=== PATIENT | female | born 1945 | race Caucasian/White ===

== ENCOUNTER → 2023-02-12 15:33 | Outpatient (CLI) | payer MEDICARE, BC, SELFPAY ==
--- NOTE | ~2023-02-12 | US_ITS ---
Thyroid ultrasound. Clinical History: Thyroid nodule Findings: Real-time sonography of the thyroid gland was performed. The right lobe measures 3.1 x 1.8 x 1.5 cm. The left lobe measures 2.7 x 1.1 x 1.4 cm. The isthmus is 5 mm in AP diameter. At the posterior aspect of the right mid pole, there is a 1.0 x 0.8 x 0.9 cm solid, circumscribed nod ule, minimally hypoechoic. Impression: 1.0 cm TR 4 nodule in the right thyroid lobe. Given size of the nodule, one-year follow-up ultrasound recommended to reassess. Reviewed, dictated and finalized at location . Impression: 1.0 cm TR 4 nodule in the right thyroid lobe. Given size of the nodule, one-yea r follow-up ultrasound recommended to reassess.
== END ==
DX: E05.90 Thyrotoxicosis, unspecified without thyrotoxic crisis or storm (principal); M81.0 Age-related osteoporosis without current pathological fracture; E04.1 Nontoxic single thyroid nodule
CPT/HCPCS: 76536

== ENCOUNTER 2023-06-05 17:40 | Emergency (ER) | payer MEDICARE, BC, SELFPAY ==
[2023-06-05 17:51] VITALS: BP 153/69; PULSE 70; RESP 16; TEMP 36.7; O2SAT 100
--- NOTE | 2023-06-05 18:21 | ED.FEMALEGU ---
HPI - Female Genitourinary General Chief complaint: Urogenital-Female Stated complaint: Urinary Problems Time Seen by Provider: 06/05/23 18:21 Source: patient, RN notes reviewed and old records reviewed Mode of arrival: ambulatory Limitations: no limitations History of Present Illness HPI Narrative: 78-year-old female presents to the [facility] with urinary discomfort that started yesterday, frequency started last night. Continue to get worse throughout the day. Has a history of UTIs Related Data Home Medications Medication Instructions Recorded Confirmed losartan 100 mg tablet 100 mg PO DAILY 01/10/20 06/05/23 multivitamin (Daily Multi-Vitamin 1 tablet PO DAILY 01/31/21 06/05/23 tablet) alpha lipoic acid 50 mg capsule 50 mg PO DAILY 02/11/22 06/05/23 methimazole 5 mg tablet 5 mg PO DAILY 02/11/22 06/05/23 Allergies Allergy/AdvReac Type Severity Reaction Status Date / Time codeine AdvReac Intermediate Nausea and Verified 06/05/23 17:49 Vomiting gabapentin AdvReac Intermediate Headache Verified 06/05/23 17:49 Opioids - Morphine Analogues AdvReac Intermediate Nausea and Verified 06/05/23 17:49 Vomiting latex AdvReac Mild Rash Verified 06/05/23 17:49 Review of Systems Review of Systems: All systems reviewed & are unremarkable except as noted in HPI and below Constitutional: Constitutional: Reports no additional constitutional complaints Eyes: Eyes: Reports no additional eye complaints ENT: Reports system reviewed and no additional complaints, except as documented Cardiovascular: Cardiovascular: Reports no additional cardiovascular complaints, Denies chest pain and Denies dyspnea Respiratory: Respiratory: Reports no additional respiratory complaints, Denies chest congestion, Denies cough and Denies dyspnea Gastrointestinal: Gastrointestinal: Reports no additional gastrointestinal complaints, Denies abdominal pain, Denies nausea and Denies vomiting Genitourinary: Genitourinary: Reports as per HPI Musculoskeletal: Musculoskeletal: Reports no additional musculoskeletal complaints Integumentary/Breasts: Skin/Breast: Reports system reviewed and no additional complaints, except as docu Neurologic: Reports system reviewed and no additional complaints, except as documented Psychiatric: Psychiatric: Reports no additional psychiatric complaints Allergic/Immunologic: Allergic/Immunologic: Reports no additional allergic/immunologic complaints PMFSH Past Medical History Medical History Acid reflux Graves disease Hypertension Surgical History Surgical History H/O spinal fusion H/O: section x3 History of appendectomy History of knee replacement Hx of tonsillectomy S/P D&C (status post dilation and curettage) x2 [place] teeth extracted Family History Family History Grandparent Diabetes mellitus Mother Hypertension Cerebrovascular accident Son Malignant neoplasm of prostate Other Depression Family history of malignant neoplasm of breast Social History Social History Smoking status: Former smoker Smoking end date: 05/25/70 Alcohol intake: current Substance use: never Comments At the time of my signature, I reviewed and agree with the nursing past medical, surgical, social, and family history. There is no relevant family history pertinent to the patient complaint. Exam Const: General: cooperative, healthy appearing, comfortable, no acute distress, well developed, alert and well nourished Nutritional Appearance: well nourished Orientation/consciousness: patient oriented x3 Limitations: no limitations HENMT: Head: normal to inspection Ears: hearing grossly normal bilaterally and external ears normal Face/Nose/Sinus: Normal external nose present, Nor
== END 2023-06-05 18:35 | disposition home or self-care (01) ==
PROVIDERS: Emergency Provider Nurse Practitioner; PCP Family Medicine
DX: N39.0 Urinary tract infection, site not specified (principal); I10 Essential (primary) hypertension; Z79.899 Other long term (current) drug therapy; Z87.891 Personal history of nicotine dependence
CPT/HCPCS: 81003; 87077; 87086; 87186; 99213; G0463

== ENCOUNTER 2024-07-09 09:30 | Emergency (ER) | payer MEDICARE, BC, SELFPAY ==
--- OUTSIDE RECORDS SUMMARY | 2024-07-09 09:32 | XMS_ITS | Clinical Summary ---
Author Organization [facility] Address [address] [place] [id number] Care Team Providers Care Counter Top Assembler Name Role Phone Unavailable Primary Care Provider Unavailabl e Immunizations Immunization Administration Dates Next Due Covid-19, Mrna, Lnp-s, Pf, 30 Mcg/0.3 Ml Dose (P fizer) 02/16/2021 Social History Tobacco Use Types Packs/Day Years Used Date Smoking Tobacco: Never Assessed Comments Unknown Sex and Gender Information Value Date Recorded Sex Assigned at Not on file Legal Sex Female 9:20 AM CDT Gender Identity Not on file Sexual Orientation Not on file Plan of Treatment Health Maintenance Due Date Last Done Comments DEXA Bone Density 1945 Hepatitis C Virus (HCV) Screening 1945 Zoster Immunization (1 of 2) 1994 Respiratory Syncytial Virus (RSV) Immunization (Adult) (1 - 1-dose 75+ series) 2019 Influenza Immunization (#1) 2024 09/0 01/2020, 03/07/2019, 02/15/2018, Additional history exists SARS-COV-2 Immunization ( season) 2024 02/16/2021, 07/19/2020, 06/28/2020 Pneumococcal Immunization (50+ years) Completed 01/03/2020, 04/22/2018, 11/23/2016 DTaP/Tdap/Td Immunization Discontinued 02/01/2020 TdaP Immunization Completed 02/01/2020 Hepatitis B Immunization Aged Out No longer eligible based on patient's age to complete this topic Meningococcal Immunization (ACWY) Aged Out No longer eligible based on patient's age to complete this topic Rotavirus Immunization Aged Out No lo nger eligible based on patient's age to complete this topic
--- OUTSIDE RECORDS SUMMARY | 2024-07-09 09:32 | XMS_ITS | Encounter Summary ---
Author Organization [facility] Address [address] [place] [address] Care Team Providers Care Deputy Director Name Role Phone Florentino Sarabia MD Unavailable [phone] Isaías Nichols MD Primary Care Provider [phone] Naresh Rodriguez MD Unavailable [phone] Yue Edmonds MD Unavailable [phone] Chastity Palomares MD Primary Care Provider [phone] Encounter Details Date Type Department Care Team (Late st Contact Info) Description 04/07/2021 MyChart Message Enc [facility] Medical Group Family & Internal Medicine [facility] [address] [place] [address] Isaías Nichols MD [address] [address] Am I good candidate for Reclast infusion? 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 No / Unsure 04/01/2021 9:39 AM PARTITION ASSEMBLER documented as of this encounter Plan of Treatment Upcoming Encounters Date Type Department Care Team (Late st Contact Info) Description 08/22/2024 8:40 AM CDT Laboratory Only [facility] Family & Internal [facility] [address] [place] [address] 08/26/2024 10:20 AM CDT Office Visit [facility] Family & Internal Medicine [address] [phone] [place] [address] [place] [address] documented as of this encounter Visit Diagnoses Not on filedocumented in this encounter Additional Health Concerns Assessment Noted Time PHQ-9 Depression Total Score: 0 10/31/19 21 8:34 AM CDT documented as of this encounter Care Teams Deputy Director Relationship Specialty Start Date End Date Isaías Nichols MD [facility]. [email or web address] [address] [place], [place] [address] PCP - General INTERNAL MEDICINE 10/24/15 06/11/21 [place] [address] [place], [place] [phone] PCP - General FAMILY PRACTICE 06/12/21 Florentino Sarabia MD Three [facility]. [facility] [[email or web address] [address] [place] [address] [place] Rough Rice Tender CARDIOVASCULAR DISEASE 10/24/15 Naresh Rodriguez MD Three [facility]. [address] [address] Consulting Physician NEUROLOGICAL SURGERY 07/06/20 Yue Edmonds MD [facility]. [address] [address] Consulting Physician ENDOCRINOLOGY 02/20/21 documented as of this encounter
--- OUTSIDE RECORDS SUMMARY | 2024-07-09 09:32 | XMS_ITS | Encounter Summary ---
Author Organization [facility] Address [address] [place] [address] Care Team Providers Care Delicatessen Department Manager Name Role Phone Florentino Sarabia MD Unavailable [phone] Naresh Rodriguez MD Unavailable [phone] Yue Edmonds MD Unavailable [phone] Chastity Palomares MD Primary Care Provider [phone] Encounter Details Date Type Department Care Team (Late st Contact Info) Description 07/06/2023 MyChart Message Enc [facility] Medical Group Family & Internal Medicine [address] [address] Chastity Palomares MD [address] [place] [address]. [address] [place] [address] Driving test Social History Tobacco Use Types Packs/Day Years Used Date Smoking Tobacco: Former Cigarettes 2 10 0 05/25/1960 - 05/25/1970 Passive Smoke Exposure: Past Smokeless Tobacco: Never Comments:quit Alcohol Use Standard Drinks/Week Comments Not Currently 0 (1 standard drink = 0.6 oz pur e alcohol) AUDIT-C Answer Date Recorded Q1: How often do you have a drink containing alc ohol? Monthly or less 01/15/2023 Q2: How many drinks containi ng alcohol do you have on a typical day when you are drinking? 1 or 2 01/15/2023 Q3: How often do you have si x or more drinks on one occasion? 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 Diagnosis vision loss ECTOR documented in this encounter Plan of Treatment Upcoming Encounters Date Type Department Care Team (Late st Contact Info) Description 08/22/2024 8:40 AM CDT Laboratory Only [facility] Family & Internal Medicine [facility] [address] [place] [phone] 08/26/2024 10:20 AM CDT Office Visit [facility] Family & Internal [facility] [address] [place] [phone] [place] [address] [address] [place] [address] documented as of this encounter Visit Diagnoses Not on filedocumented in this encounter Additional Health Concerns Assessment Noted Time PHQ-9 Depression Total Score: 4 01/16/20 23 3:14 PM CDT documented as of this encounter Care Teams Delicatessen Department Manager Relationship Specialty Start [place] [address] [address] [place] [phone] PCP - General FAMILY PRACTICE 06/12/21 Florentino Sarabia MD [address] [address] [place] Fashion Design Professor CARDIOVASCULAR DISEASE 10/24/15 Naresh Rodriguez MD Three [facility]. [address] [address] Consulting Physician NEUROLOGICAL SURGERY 07/06/20 Yue Edmonds MD [facility]. [address] [address] Consulting Physician ENDOCRINOLOGY 02/20/21 documented as of this encounter
--- OUTSIDE RECORDS SUMMARY | 2024-07-09 09:32 | XMS_ITS | Encounter Summary ---
Author Organization [facility] Address [address] [place] [address] Care Team Providers Care Custom Decorating Consultant Name Role Phone Florentino Sarabia MD Unavailable [phone] Naresh Rodriguez MD Unavailable [phone] Yue Edmonds MD Unavailable [phone] Chastity Palomares MD Primary Care Provider [phone] Encounter Details Date Type Department Care Team (Late Contact Info) Description 07/10/2021 MyCNxTherat Message Enc [facility] Medical Group Family & Internal Medicine [address] [address] Chastity Palomares MD [address] [place] [address]. [address] [place] [address] Yue Edmonds contact at [facility] Social History Tobacco Use Types Packs/Day Years Used Date Smoking Tobacco: Former Cigarettes 2 10 961 - 1970 Smokeless Tobacco: Never Comments:quit Alcohol Use Standard Drinks/Week Comments Not Currently 0 (1 standard drink = 0.6 oz pur e alcohol) PHQ-2 Answer Date Recorded PHQ-2 Score - If the patient scores above 3, please move on to questions 3-9 0 06/28/2021 Comments No Sex and Gender Information Value Date Recorded Sex Assigned at Female 06/22/2024 10:14 AM WOOD HEEL FINISHER Legal Sex Female 1:41 AM CDT Gender Identity Not on file Sexual Orientation Not on file 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 No / Unsure 07/10/2021 7:59 AM WOOD HEEL FINISHER documented as of this encounter Progress Notes * Kristine Del Toro RN - 07/11/2021 8:52 AM CST Labs faxed to Endo HEEL FINISHER documented in this encounter Plan of Treatment Upcoming Encounters Date Type Department Care Team (Late st Contact Info) Description 08/22/2024 8:40 AM CDT Laboratory Only [facility] Family & Internal [address] [phone] 08/26/2024 10:20 AM CDT Office Visit [facility] Family & Internal Medicine [facility] [address] [place] [phone] [place] [address] [facility] [address] [place] [address] documented as of this encounter Visit Diagnoses Not on filedocumented in this encounter Additional Health Concerns Assessment Noted Time PHQ-9 Depression Total Score: 0 06/28/19 1:52 PM WOOD HEEL FINISHER documented as of this encounter Care Teams Custom Decorating Consultant Relationship Specialty Start [place] [address] [address] [place] [phone] PCP - General FAMILY PRACTICE 06/12/21 Florentino Sarabia MD [facility]. [address] [address] Black Au Pair CARDIOVASCULAR DISEASE 10/24/15 Naresh Rodriguez MD [address] [address] Consulting Physician NEUROLOGICAL SURGERY 07/06/20 Yue Edmonds MD [address] [address] Consulting Physician ENDOCRINOLOGY 02/20/21 documented as of this encounter
--- OUTSIDE RECORDS SUMMARY | 2024-07-09 09:32 | XMS_ITS | Encounter Summary ---
Author Organization [facility] Address [address] [place] [address] Care Team Providers Care Studio Receptionist Name Role Phone Florentino Sarabia MD Unavailable [phone] Isaías Nichols MD Primary Care Provider [phone] Naresh Rodriguez MD Unavailable [phone] Yue Edmonds MD Unavailable [phone] Chastity Palomares MD Primary Care Provider [phone] Encounter Details Date Type Department Care Team (Late st Contact Info) Description 05/28/2021 MyChart Message Enc [facility] Medical Group Family & Internal Medicine [facility] [address] [place] [address] Isaías Nichols MD [address] [phone] Today's xray Social History Tobacco Use Types Packs/Day Years [...] Sex Assigned at Female 06/22/2024 10:14 AM PAPER FINISHER Legal Sex Female 1:41 AM CDT [...] have Coronavirus / COVID-19? No / Unsure 05/30/2021 8:20 AM PAPER FINISHER documented as of this encounter Plan of Treatment Upcoming Encounters Date Type Department Care Team (Late st Contact Info) Description 08/22/2024 8:40 AM CDT Laboratory Only [facility] Family & Internal Medicine [facility] [address] [place] [address] 08/26/2024 10:20 AM CDT Office Visit [facility] Family & Internal Medicine [facility] [address] [place] [address] [place] [address] [place] [phone] documented as of this encounter Visit Diagnoses Not on filedocumented in this encounter Additional Health Concerns Assessment Noted Time PHQ-9 Depression Total Score: 0 10/31/19 8:34 AM CDT documented as of this encounter Care Teams Studio Receptionist Relationship Specialty Start Date End Date Isaías Nichols MD Three [facility]. [facility] [address] [place] [address] PCP - General INTERNAL MEDICINE 10/24/15 06/11/21 [place] [address] [place], [place] [phone] PCP - General FAMILY PRACTICE 06/12/21 Florentino Sarabia MD Three [facility]. [facility] [address] [place] [address] [place] Wardrobe Coordinator CARDIOVASCULAR DISEASE 10/24/15 Naresh Rodriguez MD [address] [facility]. [address] [address] Consulting Physician NEUROLOGICAL SURGERY 07/06/20 Yue Edmonds MD [address] [facility]. [address] [address] Consulting Physician ENDOCRINOLOGY 02/20/21 documented as of this encounter
--- OUTSIDE RECORDS SUMMARY | 2024-07-09 09:32 | XMS_ITS | Encounter Summary ---
Author Organization [facility] Address [address] [place] [address] Care Team Providers Care Nerve Specialist Name Role Phone Florentino Sarabia MD Unavailable [phone] Naresh Rodriguez MD Unavailable [phone] Yue Edmonds MD Unavailable [phone] Chastity Palomares MD Primary Care Provider Encounter Details Date Type Department Care Team (Late st Contact Info) Description 07/10/2021 MyChart Message Enc [facility] Medical Group Family & Internal Medicine [address] [address] Chastity Palomares MD [address] [place] [address]. [address] [place] [address] My thyroid level seems dangerously low Social History Tobacco Use Types Packs/Day Years Used Date Smoking Tobacco: Former Cigarettes 2 10 1 961 - 1971 Smokeless Tobacco: Never Comments:quit Alcohol Use Standard Drinks/Week Comments Not Currently 0 (1 standard drink = 0.6 oz pur e alcohol) PHQ-2 Answer Date Recorded PHQ-2 Score - If the patient scores above 3, please move on to questions 3-9 0 06/28/2021 Comments No Sex and Gender Information Value Date Recorded Sex Assigned at Female 06/22/2024 10:14 AM BEE TENDER Legal Sex Female 1:41 AM CDT Gender [...] Coronavirus/COVID-19? No / Unsure 07/10/2021 7:59 AM BEE TENDER documented as of this encounter Progress Notes * Kristine Del Toro RN - 07/11/2021 10:40 AM CST Labs faxed to endo as requested TENDER documented in this encounter Plan of Treatment Upcoming Encounters Date Type Department Care Team (Late st Contact Info) Description 08/22/2024 8:40 AM CDT Laboratory Only [facility] Family & Internal [address] [address] 08/26/2024 10:20 AM CDT Office Visit [facility] Family & Internal Medicine [facility] [address] [place] [phone] [place] [address] [facility] [address] [place] [address] documented as of this encounter Visit Diagnoses Not on filedocumented in this encounter Additional Health Concerns Assessment Noted Time PHQ-9 Depression Total Score: 0 06/28/19 1:52 PM BEE TENDER documented as of this encounter Care Teams Nerve Specialist Relationship Specialty Start [place] [address] [address] [place], [place] [phone] PCP - General FAMILY PRACTICE 06/12/21 Florentino Sarabia MD [facility]. [address] [address] [place] [employer] Sewer CARDIOVASCULAR DISEASE 6/1/16 Naresh Rodriguez MD [address] [address] Consulting Physician NEUROLOGICAL SURGERY 07/06/20 Yue Edmonds MD [address] [address] Consulting Physician ENDOCRINOLOGY 02/20/21 documented as of this encounter
--- OUTSIDE RECORDS SUMMARY | 2024-07-09 09:32 | XMS_ITS | Encounter Summary ---
Author Organization [facility] Address [address] [place] [address] Care Team Providers Care Mortgage Originator Name Role Phone Florentino Sarabia MD Unavailable [phone] Naresh Rodriguez MD Unavailable [phone] Yue Edmonds MD Unavailable [phone] Chastity Palomares MD Primary Care Provider [phone] Encounter Details Date Type Department Care Team (Late st Contact Info) Description 07/11/2021 MyChart Message Enc [facility] Medical Group Family & Internal Medicine [address] [address] Chastity Palomares MD [address] [place] [address]. [address] [place] [address] Yesterdays tests Social History Tobacco Use Types Packs/Day Years [...] Sex Assigned at Female 06/22/2024 10:14 AM MARKETING ANALYST Legal Sex Female 1:41 AM CDT Gender [...] Coronavirus/COVID-19? No / Unsure 07/10/2021 7:59 AM MARKETING ANALYST documented as of this encounter Plan of Treatment Upcoming Encounters Date Type Department Care Team (Late st Contact Info) Description 08/22/2024 8:40 AM CDT Laboratory Only [facility] Family & Internal Medicine [address] [phone] 08/26/2024 10:20 AM CDT Office Visit [facility] Family & Internal Medicine [address] [phone] [place] [address] [place] [address] documented as of this encounter Visit Diagnoses Not on filedocumented in this encounter Additional Health Concerns Assessment Noted Time PHQ-9 Depression Total Score: 0 06/28/19 22 1:52 PM MARKETING ANALYST documented as of this encounter Care Teams Mortgage Originator Relationship Specialty Start [place] [address] [place] [address] PCP - General FAMILY PRACTICE 06/12/21 Florentino Sarabia MD [facility]. [place] [address] [place] [address] Carmi Remediation Technician CARDIOVASCULAR DISEASE 10/24/15 Naresh Rodriguez MD [facility] [place] [address] [place] [address] Consulting Physician NEUROLOGICAL SURGERY 07/06/20 Yue Edmonds MD [facility]. [address] [address] Consulting Physician ENDOCRINOLOGY 02/20/21 documented as of this encounter
--- OUTSIDE RECORDS SUMMARY | 2024-07-09 09:32 | XMS_ITS | Encounter Summary ---
Author Organization [facility] Address [address] [place] [address] Care Team Providers Care Gas Pumping Station Helper Name Role Phone Florentino Sarabia MD Unavailable [phone] Naresh Rodriguez MD Unavailable [phone] Yue Edmonds MD Unavailable [phone] Chastity Palomares MD Primary Care Provider [phone] Encounter Details Date Type Department Care Team (Late st Contact Info) Description 12/12/2021 [email or web address] Message Enc [facility] Family & Internal Medicine [address] [address] Yulissa, [facility] Provider results Social History Tobacco Use Types Packs/Day Years Used Date Smoking Tobacco: Former Cigarettes 2 10 1 1970 Smokeless Tobacco: Never Comments:quit Alcohol Use Standard Drinks/Week Comments Not Currently 0 (1 standard drink = 0.6 oz pur e alcohol) PHQ-2 Answer Date Recorded PHQ-2 Score - If the patient scores above 3, please move on to questions 3-9 0 09/13/2021 Comments No Sex and Gender Information Value Date Recorded Sex Assigned at Female 06/22/2024 10:14 AM SENIOR PRODUCTION MANAGER Legal Sex Female 1:41 AM CDT Gender [...] suspected to have Coronavirus/COVID-19? No / Unsure 12/04/2021 7:56 AM CDT documented as of this encounter Progress Notes * Pinky Meléndez RN - 12/18/2021 3:33 PM CDT Any advise. * Pinky Meléndez RN - 12/16/2021 1:30 PM CDT Please advise. documented in this encounter Plan of Treatment Upcoming Encounters Date Type Department Care Team (Late st Contact Info) Description 08/22/2024 8:40 AM CDT Laboratory Only [facility] Family & Internal Medicine [facility] [address] [place] [address] 08/26/2024 10:20 AM CDT Office Visit [facility] Family & Internal Medicine [facility] [address] [place] [phone] [place] [address] [address] [place] [address] documented as of this encounter Visit Diagnoses Not on filedocumented in this encounter Additional Health Concerns Assessment Noted Time PHQ-9 Depression Total Score: 0 08/22/19 22 9:28 AM CDT documented as of this encounter Care Teams Gas Pumping Station Helper Relationship Specialty Start [place] [address] [address] [place] [address] PCP - General FAMILY PRACTICE 06/12/21 Florentino Sarabia MD [address] [address] [place] Transportation Planning Engineer CARDIOVASCULAR DISEASE 10/24/15 Naresh Rodriguez MD Three [facility]. [address] [address] Consulting Physician NEUROLOGICAL SURGERY 07/06/20 Yue Edmonds MD Three [facility]. [address] [address] Consulting Physician ENDOCRINOLOGY 02/20/21 documented as of this encounter
--- OUTSIDE RECORDS SUMMARY | 2024-07-09 09:32 | XMS_ITS | Encounter Summary ---
Author Organization [facility] Address [address] [place] [address] Care Team Providers Care Road Grader Name Role Phone Florentino Sarabia MD Unavailable [phone] Isaías Nichols MD Primary Care Provider [phone] Naresh Rodriguez MD Unavailable [phone] Yue Edmonds MD Unavailable [phone] Chastity Palomares MD Primary Care Provider [phone] Encounter Details Date Type Department Care Team (Late st Contact Info) Description 07/08/2020 Volusion Message [facility] [address] [place] [address] Isaías Nicohls MD [address] [address] RE: Test Results Social History Tobacco Use Types Packs/Day Years Used Date Smoking Tobacco: Former Cigarettes Q uit: 1971 Smokeless Tobacco: Never Alcohol Use Standard Drinks/Week Comments Yes 0 (1 standard drink = 0.6 oz pur e alcohol) 7-12 glasses white wine weekly PHQ-2 Answer Date Recorded PHQ-2 Score - If the patient scores above 3, please move on to questions 3-9 0 07/06/2020 Comments No Sex and Gender Information Value Date Recorded Sex Assigned at Female 06/22/2024 10:14 AM HIGH SCHOOL ASSISTANT PRINCIPAL Legal Sex Female 1:41 AM CDT Gender [...] have Coronavirus / COVID-19? No / Unsure 07/06/2020 7:47 AM HIGH SCHOOL ASSISTANT PRINCIPAL documented as of this encounter Plan of Treatment Upcoming Encounters Date Type Department Care Team (Late st Contact Info) Description 08/22/2024 8:40 AM CDT Laboratory Only [facility] Family & Internal Medicine [address] [address] 08/26/2024 10:20 AM CDT Office Visit [facility] Family & Internal [address] [address] [place] [address] [facility]. [address] [place] [id number] documented as of this encounter Visit Diagnoses Not on filedocumented in this encounter Care Teams Road Grader Relationship Specialty Start Date End Date Isaías Nichols MD [facility]. [address] [id number] PCP - General INTERNAL MEDICINE 10/24/15 06/11/21 [place] [address] [place] [address] [phone] PCP - General FAMILY PRACTICE 06/12/21 Florentino Sarabia MD [facility]. [address] [address] [place] Garbage Man CARDIOVASCULAR DISEASE 10/24/15 Naresh Rodriguez MD [facility]. [address] [address] Consulting Physician NEUROLOGICAL SURGERY 07/06/20 Yue Edmonds MD [facility]. [address] [address] Consulting Physician ENDOCRINOLOGY 02/20/21 documented as of this encounter
--- OUTSIDE RECORDS SUMMARY | 2024-07-09 09:32 | XMS_ITS | Encounter Summary ---
Author Organization [facility] Address [address] [place] [address] Care Team Providers Care Closet Builder Name Role Phone Florentino Sarabia MD Unavailable [phone] Naresh Rodriguez MD Unavailable [phone] Yue Edmonds MD Unavailable [phone] Chastity Palomares MD Primary Care Provider [phone] Encounter Details Date Type Department Care Team (Latest Contact Info) Description 07/14/2023 MyCLazarus Effectt Message Enc [facility] Family & Internal Medicine [address] [address] Chastity Palomares MD [address] [place] [address]. [address] [place] [address] 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 documented as of this encounter Progress Notes * Yazmin Olivares NP - 07/15/2023 11:03 AM CST fyi E PROFESSOR documented in this encounter Plan of Treatment Upcoming Encounters Date Type Department Care Team (Late st Contact Info) Description 08/22/2024 8:40 AM CDT Laboratory Only [facility] Family & Internal Medicine [address] [phone] 08/26/2024 10:20 AM CDT Office Visit [facility] Family & Internal [facility] [address] [place] [phone] [place] [address] [facility] [employer]. [address] [place] [address] documented as of this encounter Visit Diagnoses Not on filedocumented in this encounter Additional Health Concerns Assessment Noted Time PHQ-9 Depression Total Score: 4 01/16/20 23 3:14 PM CDT documented as of this encounter Care Teams Closet Builder Relationship Specialty Start [place] [address] [address] [place] [address] PCP - General FAMILY PRACTICE 06/12/21 Florentino Sarabia MD [address] [address] [place] Phosphoric Acid Operator CARDIOVASCULAR DISEASE 10/24/15 Narehs Rodriguez MD [facility]. [address] [address] Consulting Physician NEUROLOGICAL SURGERY 07/06/20 Yue Edmonds MD [facility]. [address] [address] Consulting Physician ENDOCRINOLOGY 02/20/21 documented as of this encounter
--- OUTSIDE RECORDS SUMMARY | 2024-07-09 09:32 | XMS_ITS | Encounter Summary ---
Author Organization [facility] Address [address] [place] [address] Care Team Providers Care Glaze Wiper Name Role Phone Florentino Sarabia MD Unavailable [phone] Naresh Rodriguez MD Unavailable [phone] Yue Edmonds MD Unavailable [phone] hCastity Paolmares MD Primary Care Provider [phone] Encounter Details Date Type Department Care Team (Late st Contact Info) Description 12/02/2023 Electric Entertainment Message [facility]s [address] [place] [address] Yulissa [facility] Provider 12/02/23 Call Social History Tobacco Use Types Packs/Day Years [...] Sex Assigned at Female 06/22/2024 10:14 AM GUARD DANCE HALL Legal Sex Female 1:41 AM CDT Gender Identity Not on file Sexual Orientation Not on file 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 [address] [place] [phone] documented as of this encounter Visit Diagnoses Not on filedocumented in this encounter Additional Health Concerns Assessment Noted Time PHQ-9 Depression Total Score: 4 01/16/20 23 3:14 PM CDT documented as of this encounter Care Teams Glaze Wiper Relationship Specialty Start [place] [address] [facility]. [address] [place] [address] PCP - General FAMILY PRACTICE 06/12/21 Florentino Sarabia MD [address] [address] [place] Pearl Fisherman CARDIOVASCULAR DISEASE 10/24/15 Naresh Rodriguez MD [address] [address] Consulting Physician NEUROLOGICAL SURGERY 07/06/20 Yue Edmonds MD [facility]. [address] [address] Consulting Physician ENDOCRINOLOGY 02/20/21 documented as of this encounter
--- NOTE | 2024-07-09 09:33 | ED_ITS ---
HPI - Female Genitourinary General Chief complaint: Urogenital-Female Stated complaint: possible UTI Time Seen by Provider: 07/09/24 09:33 Source: patient Mode of arrival: ambulatory Limitations: no limitations History of Present Illness HPI Narrative: Patient is an 79-year-old female who presents with 1 week of uncomfortable feeling when urinating but states she is usually able to flush it out with increased water and decrease caffeine. Patient states the last 2 days she has woke up with a headache and chills and then started having burning with urination this morning. Last UTI was a year ago. Denies any fever, low back pain, nausea, vomiting, diarrhea. MD elicited complaint: dysuria Related Data Home Medications ?Medication ?Instructions ?Recorded ?Confirmed ?Last Taken ?Type losartan 100 mg tablet 100 mg PO DAILY 01/10/20 06/06/24 Unknown History multivitamin (Daily Multi-Vitamin 1 tablet PO DAILY 01/31/21 06/06/24 Unknown History tablet) alpha lipoic acid 50 mg capsule 50 mg PO DAILY 02/11/22 06/06/24 Unknown History methimazole 5 mg tablet 5 mg PO DAILY 02/11/22 06/06/24 Unknown History calcium carbonate (Calcium 500) 1,000 mg PO DAILY 06/06/24 06/06/24 Unknown History cholecalciferol (vitamin D3) 25 25 mcg PO DAILY 06/06/24 06/06/24 Unknown History mcg (1,000 unit) capsule amlodipine 5 mg tablet mg 07/09/24 Unknown History Allergies Allergy/AdvReac Type Severity Reaction Status Date / Time latex Allergy Mild Rash Verified 07/09/24 10:03 codeine AdvReac Intermediate Nausea and Verified 07/09/24 10:03 Vomiting gabapentin AdvReac Intermediate Headache Verified 07/09/24 10:03 Opioids - Morphine Analogues AdvReac Intermediate Nausea and Verified 07/09/24 10:03 Vomiting Review of Systems Review of Systems: All systems reviewed & are unremarkable except as noted in HPI and below Constitutional: Constitutional: Denies chills, Denies fever(s), Denies headache(s), Denies malaise and Denies weakness Eyes: Eyes: Denies change in vision, Denies eye discharge and Denies irritation ENT: Denies otalgia, Denies headache(s), Denies nasal congestion, Denies nasal discharge, Denies sinus pain and Denies sore throat Cardiovascular: Cardiovascular: Denies chest pain, Denies edema, Denies palpitations and Denies dyspnea Respiratory: Respiratory: Denies cough and Denies dyspnea Gastrointestinal: Gastrointestinal: Denies abdominal pain, Denies diarrhea, Denies nausea and Denies vomiting Genitourinary: Genitourinary: Denies hematuria, Reports nocturia, Reports dysuria, Denies flank pain and Reports urinary urgency Musculoskeletal: Musculoskeletal: Denies back pain and Denies numbness Integumentary/Breasts: Skin/Breast: Denies pruritus and Denies rash Neurologic: Denies headache(s), Denies numbness and Denies weakness Psychiatric: Psychiatric: Reports no additional psychiatric complaints Endocrine: Endocrine: Denies palpitations PMFSH Past Medical History Medical History (Updated 07/09/24 @ 10:21 by Debbie Haro APRN) Thyroid eye disease Osteoporosis Urge incontinence of urine Graves disease Acid reflux Hypertension Surgical History Surgical History (Updated 06/06/24 @ 14:22 by Jenniffer Estrada PA-C) History of eye surgery due to thyroid eye disease History of cataract extraction Hx of tonsillectomy History of appendectomy History of knee replacement right knee-2019 H/O spinal fusion 2017, L4-L5 [place] teeth extracted S/P D&C (status post dilation and curettage) x2 H/O: section x3 Family History Family History Grandparent Diabetes mellitus Mother Hypertension Cerebrovascular accident Son Malignant neoplasm of prostate Other Depression Family history of malignant neoplasm of breast Social History Social History Social History: 05/31/24 somewhat confident with medical forms Smoking status: Former smoker Smoking end date: 05/25/70 Alcohol intake: current Substance use: never Do You Feel Safe in your Home?: Yes Lack of Transportation: No Lack of Food: Never True Current Housing: I Have Housing Concerned About Future Housing: No Difficulty Paying Gas/Electric Bills: No Difficulty Paying for Meds: No Currently Unemployed: No Education: Master's Degree or Higher Difficulty w/ Childcare or Family Care: No Comments At time of signature, agree with nursing past medical, surgical, social and family history. There is no relevant family history pertinent to the presenting complaint. Exam Const: General: cooperative, healthy appearing, comfortable, no acute distress and well nourished Nutritional Appearance: well nourished Orientation/consciousness: patient oriented x3 HENMT: Head: normocephalic and atraumatic Ears: external ears normal Face/Nose/Sinus: Normal external nose present, Normal nares present and normal facial exam Face and sinus: normal facial exam Eyes: General: appearance normal, both eyes and all related structures Pupils: Equal, round and reactive pupils present EOM: EOMs intact bilaterally Neck: Neck: normal visual inspection, full ROM and supple Chest: Chest palpation & inspection: normal inspection of the chest Resp: Effort & Inspection: normal respiratory effort and able to speak in complete sentences Cardio: Rate: regular rate Rhythm: regular rhythm GI: Inspection: normal to inspection GI Palp: No abdominal tenderness and Yes Soft to palpation : General: Yes no CVA tenderness Back/Spine/Pelvis: Back: no CVA tenderness Skin: General skin exam: normal color and no rashes or lesions noted Neuro: General: patient oriented x3 and moves all extremities Cranial nerves: Yes Equal, round and reactive pupils present Extrem: General: normal to inspection and full ROM Psych: Appearance: grossly normal and well kempt Course Course Emergency Course: Patient is aware of diagnosis, understands and agrees to treatment plan. Anticipatory guidance given. Patient agrees to follow-up as directed and is aware of reasons to seek care at the emergency department. Portions of this record may have been created with voice recognition software Level of Care: Express Care Visit Vital Signs Vital signs: Vital Signs Temperature 36.1 C L 07/09/24 09:41 Pulse Rate 75 07/09/24 09:41 Respiratory Rate 18 07/09/24 09:41 Blood Pressure 144/67 H 07/09/24 09:41 Pulse Oximetry 100 07/09/24 09:41 Oxygen Delivery Room Air 07/09/24 09:41 Temperature 36.1 C L 07/09/24 09:41 Pulse Rate 75 07/09/24 09:41 Respiratory Rate 18 07/09/24 09:41 Blood Pressure 144/67 H 07/09/24 09:41 Pulse Oximetry 100 07/09/24 09:41 Oxygen Delivery Room Air 07/09/24 09:41 Reviewed MDM - Female Genitourinary MDM Narrative Medical decision making narrative: Exam findings and UA show probable UTI; patient is non-toxic appearing and is in no distress. Will treat with Macrobid as it was susceptible on last culture No CMT, adnexal tenderness, or evidence of pelvic etiology. Patient is appropriate for outpatient treatment and follow-up. Differential Diagnosis Differential diagnosis: Likely urinary tract infection, bacterial vaginosis, trichomoniasis, cervicitis, vaginitis and cystitis Medical Records Attestation: I reviewed the patient's medical records. Lab Data Attestation: I reviewed the patient's lab results. Labs: Lab Results 07/09/24 Range/Units 10:01 POC Urine Color Yellow POC Urine Clarity Clear POC Urine pH 7.0 POC Ur Specif [place] 1.015 POC Urine Protein Negative (Negative) POC Ur Glucose (UA) Negative (Negative) POC Urine Ketones Negative (Negative) POC Urine Blood 1+ (Negative) POC Urine Nitrite Negative (Negative) POC Urine Bilirubin Negative (Negative) POC Urine Urobilinogen 0.2 POC U Leukocyte Esteras 3+ (Negative) Discharge Plan Discharge Clinical Impression: Urinary tract infection Qualifiers: Urinary tract infection type: acute cystitis Hematuria presence: with hematuria Qualified Code(s): N30.01 - Acute cystitis with hematuria Patient Disposition: Home, Self-Care Condition: Stable Instructions: Urinary Tract Infection in Older Adults (ED) Additional Instructions: We will send a urine culture to the lab, based on your symptoms and urine dip we will start treatment today. If culture comes back and bacteria is not susceptible to antibiotic, your prescription may change. Your symptoms should improve within a day of starting antibiotics, but you should finish all the antibiotic pills you get. Otherwise your infection might come back Continue with increased water intake. Take Tylenol or ibuprofen as needed for pain or fever. Follow-up with primary care provider for urine recheck or see ER visit if condition worsens with high fever, nausea, vomiting, severe back pain Your blood pressure was elevated above 120/80 today at Urgent Care. This puts you above the threshold for follow up visit with a primary care provider. High blood pressure does not usually cause any symptoms, however it may lead to kidney failure, stroke, heart disease just to name a few if untreated . Many people are anxious when seeing a provider or nurse. As a result, you are not diagnosed with hypertension at this time unless your blood pressure is persistently high at two office visits at least one week apart. Some things that can help lower blood pressure are lifestyle modifications, such as light exercise, decreased salt in diet, and weight loss. It is important to follow up with a PCP about this within 1 week. Patient Language: Sudanese Prescriptions: New nitrofurantoin monohyd/m-cryst 100 mg capsule 100 mg PO Q12H 5 Days Qty: 10 0RF Rx Instructions: must administer with a meal/food No Action amlodipine 5 mg tablet losartan 100 mg tablet 100 mg PO DAILY multivitamin [Daily Multi-Vitamin] Tablet 1 tablet PO DAILY alpha lipoic acid 50 mg capsule 50 mg PO DAILY methimazole 5 mg tablet 5 mg PO DAILY cholecalciferol (vitamin D3) 25 mcg (1,000 unit) capsule 25 mcg PO DAILY calcium carbonate [Calcium 500] 500 mg calcium (1,250 mg) tablet,chewable 1,000 mg PO DAILY estradiol [Estrace] 0.01 % (0.1 mg/gram) cream 1 g vaginal 2XW Qty: 42.5 1RF Follow-up/Referrals: Arvin,MD Chastity [Primary Care Provider] - 3 Days Time of Disposition: 10:23
--- OUTSIDE RECORDS SUMMARY | 2024-07-09 09:33 | XMS_ITS | Encounter Summary ---
Author Organization [facility] Address [address] [place] [address] Care Team Providers Care Steel Heater Name Role Phone Florentino Sarabia MD Unavailable [phone] Isaías Nichols MD Primary Care Provider [phone] Naresh Rodriguez MD Unavailable [phone] Yue Edmonds MD Unavailable [phone] Chastity Palomares MD Primary Care Provider [phone] Encounter Details Date Type Department Care Team (Late st Contact Info) Description 06/29/2020 Metheor Therapeuticst Message [facility] [address] [place] [address] Isaías Nichols MD [address] [address] RE: Question Social History Tobacco Use Types Packs/Day Years Used Date Smoking Tobacco: Former Cigarettes Q uit: 1971 Smokeless Tobacco: Never Alcohol Use Standard Drinks/Week Comments Yes 0 (1 standard drink = 0.6 oz pur e alcohol) 7-12 glasses white wine weekly PHQ-2 Answer Date Recorded PHQ-2 Score 0 12/26/2019 Comments No Sex and Gender Information Value Date Recorded Sex Assigned at Female 06/22/2024 10:14 AM BREAKER OILER Legal Sex Female 1:41 AM CDT Gender [...] have Coronavirus / COVID-19? No / Unsure 06/28/2020 11:38 AM BREAKER OILER documented as of this encounter Plan of Treatment Upcoming Encounters Date Type Department Care Team (Late st Contact Info) Description 08/22/2024 8:40 AM CDT Laboratory Only [facility] Family & Internal Medicine [address] [address] 08/26/2024 10:20 AM CDT Office Visit [facility] Family & Internal [address] [address] [place] [address] [facility]. [address] [place] [phone] documented as of this encounter Visit Diagnoses Not on filedocumented in this encounter Care Teams Steel Heater Relationship Specialty Start Date End Date Isaías Nichols [facility] [address] [address] PCP - General INTERNAL MEDICINE 10/24/15 06/11/21 [place] [address] [place] [address] PCP - General FAMILY PRACTICE 06/12/21 Florentino Sarabia MD [facility]. [address] [address] [place] Workforce Specialist CARDIOVASCULAR DISEASE 10/24/15 Na[facility] [address] [address] Consulting Physician NEUROLOGICAL SURGERY 07/06/20 Yue Edmonds MD [facility]. [address] [address] Consulting Physician ENDOCRINOLOGY 02/20/21 documented as of this encounter
--- OUTSIDE RECORDS SUMMARY | 2024-07-09 09:33 | XMS_ITS | Encounter Summary ---
Author Organization [facility] Address [address] [place] [address] Care Team Providers Care Financial Compliance Officer Name Role Phone Florentino Sarabia MD Unavailable [phone] Isaías Nichols MD Primary Care Provider [phone] Naresh Rodriguez MD Unavailable [phone] Yue Edmonds MD Unavailable [phone] Chastity Palomares MD Primary Care Provider [phone] Encounter Details Date Type Department Care Team (Late st Contact Info) Description 07/09/[address] [facility] [address] [place] [address] Isaías Nichols MD [address] [address] RE: Medication Questions Social History Tobacco Use Types Packs/Day Years [...] Sex Assigned at Female 06/22/2024 10:14 AM HOUSE PAINTER Legal Sex Female 1:41 AM CDT Gender [...] COVID-19? No / Unsure 07/06/2020 7:47 AM HOUSE PAINTER documented as of this encounter Progress Notes * Gabby Madison MA - 07/10/2020 8:55 AM CST Please advise. E PAINTER documented in this encounter Plan of Treatment Upcoming Encounters Date Type Department Care Team (Late st Contact Info) Description 08/22/2024 8:40 AM CDT Laboratory Only [facility] Family & Internal Medicine [facility] [address] [place] [address] 08/26/2024 10:20 AM CDT Office Visit [facility] Family & Internal Medicine [facility] [address] [place] [address] [place] [address] [address] [place] [phone] documented as of this encounter Visit Diagnoses Not on filedocumented in this encounter Care Teams Financial Compliance Officer Relationship Specialty Start Date End Date Isaías Nichols MD [address] [address] PCP - General INTERNAL MEDICINE 10/24/15 06/11/21 [place] [address] [address] [place] [phone] PCP - General FAMILY PRACTICE 06/12/21 Florentino Sarabia MD [address] [facility] [address] [employer] [employer] Motor And Generator Assembler CARDIOVASCULAR DISEASE 10/24/15 Naresh Rodriguez MD [address] [address] Consulting Physician NEUROLOGICAL SURGERY 07/06/20 Yue Edmonds MD [address] [place] [address] [place] [address] Consulting Physician ENDOCRINOLOGY 02/20/21 documented as of this encounter
--- OUTSIDE RECORDS SUMMARY | 2024-07-09 09:33 | XMS_ITS | Encounter Summary ---
Author Organization [facility] Address [address] [place] [address] Care Team Providers Care Service Center Appraiser Name Role Phone Florentino Sarabia MD Unavailable [phone] Naresh Rodriguez MD Unavailable [phone] Yue Edmonds MD Unavailable [phone] Chastity Palomares MD Primary Care Provider [phone] Encounter Details Date Type Department Care Team (Late st Contact Info) Description 03/08/2024 MyChart Message Enc [facility] Family & Internal Medicine [address] [address] Chastity Palomares MD [address] [place] [address]. 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 [place] [address] documented as of this encounter Visit Diagnoses Not on filedocumented in this encounter Additional Health Concerns Assessment Noted Time PHQ-9 Depression Total Score: 4 01/16/20 23 3:14 PM CDT documented as of this encounter Care Teams Service Center Appraiser Relationship Specialty Start [place] [address] [place] [address] PCP - General FAMILY PRACTICE 06/12/21 Florentino Sarabia MD [address] [address]24[address] [place] Fws Faculty Assistant CARDIOVASCULAR DISEASE 10/24/15 Naresh Rodriguez MD [address] [facility] [place] [address] Consulting Physician NEUROLOGICAL SURGERY 07/06/20 Yue Edmonds MD [address] [address] Consulting Physician ENDOCRINOLOGY 02/20/21 documented as of this encounter
--- OUTSIDE RECORDS SUMMARY | 2024-07-09 09:33 | XMS_ITS | Referral Summary ---
Author Organization [facility] Address [address] [place] [phone] Care Team Providers Care Photograph Tinter Name Role Phone Miguel A Lucero MD Unavailable [phone] Antony Lundy MD Unavailable [phone] Chastity Palomares MD Primary Care Provider [phone] Jenniffer Darling Unavailable [phone] Encounters Date Type Department Care Team Description 06/23/2024 Telephone [facility] Ophthalmology [address] [place] [phone] Miguel A Lucero MD 04/19/2024 10:30 AM UNDER SHERIFF Procedure visit [facility] Otolaryngology [address] [place] [phone] Yamileth Jiang Au.D. Sensorineural hearing loss (SNHL), bilateral (Primary Dx) 04/14/2024 10:00 AM UNDER SHERIFF Office Visit [facility] Ophthalmology [address] [place] [phone] Mo Santiago III, MD Diplopia (Primary Dx) from Last 3 Months Allergies Active Allergy Reactions Criticality Noted Date Comments Codeine Nausea only Low Gabapentin Headache Medium 03/03/2016 Latex, Natural Rubber Rash Medium 03/10/2016 Mouth sores Morphine Vomiting Low 03/03/2016 Opioids - Morphine Analogues Stomach upset,Nausea And Vomiting Medium 07/03/2017 Medications losartan (COZAAR) 100 mg tabletIndicatio ns:hypertension Take 1 tablet (100 mg total) by mouth nightly 1 Active methIMAzole (TAPAZOLE) 5 mg tabletIndicatio ns:hyperthyroid ism Take 1 tablet (5 mg total) by mouth nightly 2 Active famotidine (PEPCID) 20 mg tabletIndicatio ns:gastroesopha geal reflux disease Take 1 tablet (20 mg total) by mouth nightly Active estradioL (ESTRACE) 0.01 % (0.1 mg/gram) vaginal creamIndication s:Atrophic Vaginitis associated with Menopause Insert 2 g into the vagina 2 (two) times a week Take Thursday and Thursday Active acetaminophen (TYLENOL) 500 mg tabletIndicatio ns:Pain Take 1 tablet (500 mg total) by mouth every 6 (six) hours as needed for pain Active predniSONE (DELTASONE) 5 mg tablet Take 4 tablets (20 mg) by mouth Active calcium carbonate-vitam in D3 2,500 mg (1,000 mg elemental)-800 unit tablet Take by mouth Acti ve Active Problems Problem Noted Date Diagnosed Date Polyarthralgia 12/28/2023 Overview (01/12/2024): Labs 12/29/2023 AVISE: negative ESR and CRP wnl Xrays 12/30/2023 XR R hand - chronic appearing erosive change of the ulnar styloid. 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 2nd-5th PIP and DIP OA. XR L hand - severe 1st CMC OA. Moderate 2nd-5th PIP and 2nd-3rd DIP OA. Ultrasound 01/12/2024 1) Dorsal wrist: Grade 1 power doppler. 2) Radial scaphoid joint: Grade 1 power doppler. 3) 2nd PIP joint: Mild synovial thickening. 4) CMC joint: Marked spurring. 5) A markedly enlarged median nerve at 0.27 cm2 is identified. Assessment & Plan (01/12/2024 3:03 PM CDT): 78yoF presents for evaluation due to multifocal joint pain. Much of her pain has been attributed to OA after previous evaluation. She does recall having been told in the past that she had markers suggestive of RA. While much of her described pain sounds mechanical, she does report hand pain with stiffness that is worse in the morning for 2 hours. NSAIDs and MDP have offered mild benefit. Her exam reveals scattered tender joints as well as signs c/w OA including Heberden's/Luis's nodes. Our serologic workup was unremarkable including normal/negative RF, CCP, MVC, ESR, and CRP. Xrays reveal multifocal moderate to severe OA and an US of her R hand/wrist does not show significant active inflammation. She has median nerve enlargement but denies any CTS symptoms. Overall at this time there is not evidence to substantiate any active rheumatologic diagnosis, favor OA. She notes benefit with meloxicam but cannot tolerate due to worsening of GERD; discussed consideration for a trial of Celebrex which may be easier on the GI tract. Reviewed potential AE of NSAIDs including PUD, nephrotoxicity, and increased CV risk. She does wish to try Celebrex, but plans to defer start until she has her diplopia addressed with the eye doctor later this month. If she responds well to Celebrex, she will follow up with her PCP to discuss continued use. Otherwise will plan for her to return here prn. Assessment & Plan (12/29/2023 3:19 PM CDT): 78yoF presents for evaluation due to multifocal joint pain. Much of her pain has been attributed to OA after previous evaluation. She does recall having been told in the past that she had markers suggestive of RA. While much of her described pain sounds mechanical, she does report hand pain with stiffness that is worse in the morning for 2 hours. NSAIDs and MDP have offered mild benefit. Also reports dry eye and oral ulcers. Her exam today reveals scattered tender joints with only questionable synovitis, certainly signs c/w OA including Heberden's/Luis's nodes. Overall she does report some features that could suggest inflammatory arthritis. To further evaluate will check serologies, xrays, and ultrasound as below with plan for follow up in 2 weeks to review results. 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 From lab values available, methimazole, 5 mg seems appropriate. She was reassured that there is no alternative treatment, and that the duration of treatment is 2 - 5 years, with periodic re-evaluation. Unfortunately, the antibody titers do not accurately reflect disease activity. She will continue care with Dr. Edmonds. 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 She will continue care with Dr. Lucero for this problem, may or may not require additional surgical or other procedures. Graves disease 01/22/2022 Bilateral impacted cerumen 07/31/2020 Sensorineural hearing loss (SNHL) of both ears 0 07/31/2020 Combined forms of age-related cataract 7 Thyroid activity decreased 10/03/2015 Irregular heart rhythm 10/03/2015 Hearing loss 10/03/2015 History of gastroesophageal reflux (GERD) 2015 Osteoarthritis 10/03/2015 Cephalalgia 10/03/2015 Dry eyes 10/03/2015 Age-related cataract 10/03/2015 Social History Tobacco Use Types Packs/Day Years Used Date Smoking Tobacco: Former Cigarettes Q uit: 1971 Smokeless Tobacco: Never Tobacco Cessation:Counseling Given: Not Answered AUDIT-C Answer Date Recorded Q1: How often do you have a drink containing alc ohol? Monthly or less 01/21/2024 Q2: How many drinks containi ng alcohol do you have on a typical day when you are drinking? 1 or 2 01/21/2024 Q3: How often do you have si x or more drinks on one occasion? Never 01/21/2024 Personal Safety Answer Date Recorded Have you ever been in or are you currently in a harmful physical or emotional relationship or is someone making you feel afraid or unsafe? Denies 01/21/2024 Comments No Sex and Gender Information Value Date Recorded Sex Assigned at Not on file Legal Sex Female 8:30 AM UNDER SHERIFF Gender Identity Not on file Sexual Orientation Not on file Last Filed Vital Signs Vital Sign Reading Time Taken Comments Blood Pressure 159/70 01/21/2024 2:02 PM CDT Pulse 74 01/21/2024 2:02 PM CDT Temperature 36 C (96.8 F) 01/21/2024 2:02 PM CDT Respiratory Rate 16 01/21/2024 2:02 PM CDT Oxygen Saturation 96% 01/21/2024 2:02 PM CDT Inhaled Oxygen Concentration - - Weight 73.2 kg (161 lb 6.4 oz) 01/12/2024 1:04 P M CDT Height 157.5 cm (5' 2 ) 01/12/2024 1:04 PM CDT Body Mass Index 29.52 01/12/2024 1:04 PM CDT Plan of Treatment Not on file Medical Devices Implanted Type Area Hair Weaver Device Identifier Shelf Expiration Date Model / Serial / Lot Metal N/A: Mouth Insurance MEDICARE [facility] MEDICARE [facility] FEDERAL MEDICARE [facility] FEDERAL Advance Directives For more information, please contact: [phone] Documents on File Type Date Recorded 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 [address] [place] [address] Surgeon Ophthalmology 12/05/22 Antony Lundy MD [address] [place] [address] Consulting Physician Rheumatology 11/17/23 Jenniffer Darling, OD [address] [address] Optometry 04/14/24
--- OUTSIDE RECORDS SUMMARY | 2024-07-09 09:33 | XMS_ITS | Encounter Summary ---
Author Organization [facility] Address [address] [place] [address] Care Team Providers Care Casing In Line Setter Name Role Phone Florentino Sarabia MD Unavailable [phone] Isaías Nichols MD Primary Care Provider [phone] Naresh Rodriguez MD Unavailable [phone] Yue Edmonds MD Unavailable [phone] Chastity Palomares MD Primary Care Provider Encounter Details Date Type Department Care Team (Late st Contact Info) Description 11/23/2018 MyCMobiWorkt Message Enc [facility] Family & Internal Medicine [facility] [address] [place] [address] Isaías Nichols MD [address] [address] RE: Medication Questions Social History Tobacco Use Types Packs/Day Years Used Date Smoking Tobacco: Former Cigarettes Q uit: 1971 Smokeless Tobacco: Never Alcohol Use Standard Drinks/Week Comments Yes 0 (1 standard drink = 0.6 oz pur e alcohol) 7-12 glasses white wine weekly Comments Unknown Sex and Gender Information Value Date Recorded Sex Assigned at Female 06/22/2024 10:14 AM SR. 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 [place] [phone] documented as of this encounter Visit Diagnoses Not on filedocumented in this encounter Care Teams Casing In Line Setter Relationship Specialty Start Date End Date Isaías Nichols MD [facility]. [address] [address] PCP - General INTERNAL MEDICINE 10/24/15 06/11/21 [place] [address] [place] [address] PCP - General FAMILY PRACTICE 06/12/21 Florentino Sarabia MD [facility]. [address] [address] [employer] Tender CARDIOVASCULAR DISEASE 10/24/15 Naresh Rodriguez MD [facility] [address] [address] Consulting Physician NEUROLOGICAL SURGERY 07/06/20 Yue [place]s MD [facility]. [address] [address] Consulting Physician ENDOCRINOLOGY 02/20/21 documented as of this encounter
--- OUTSIDE RECORDS SUMMARY | 2024-07-09 09:33 | XMS_ITS | Encounter Summary ---
Author Organization [facility] Address [address] [place] [address] Care Team Providers Care Polishing Wheel Repairer Name Role Phone Florentino Sarabia MD Unavailable [phone] Isaías Nichols MD Primary Care Provider [phone] Naresh Rodriguez MD Unavailable [phone] Yue Edmonds MD Unavailable [phone] Chastity Palomares MD Primary Care Provider [phone] Encounter Details Date Type Department Care Team (Latest Contact Info) Description 02/16/2018 Abstract [facility] Medical [facility] Isaías Nichols MD [address] [address] Social History Tobacco Use Types Packs/Day Years Used Date Smoking Tobacco: Former Cigarettes Q uit: 1971 Smokeless Tobacco: Never Alcohol Use Standard Drinks/Week Comments Yes 0 (1 standard drink = 0.6 oz pur e alcohol) 7-12 glasses white wine weekly Comments Unknown Sex and Gender Information Value Date Recorded Sex Assigned at Female 06/22/2024 10: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 Legal Sex Female 1:41 AM CDT Gender Identity Not on file Sexual Orientation Not on file 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 [place] [address] documented as of this encounter Visit Diagnoses Not on filedocumented in this encounter Care Teams Polishing Wheel Repairer Relationship Specialty Start Date End Date Isaías Nichols MD [address] [address] PCP - General INTERNAL MEDICINE 10/24/15 06/11/21 [place] [address] [place] [address] PCP - General FAMILY PRACTICE 06/12/21 Florentino Sarabia MD [address] [address] [place] Router Setter CARDIOVASCULAR DISEASE 10/24/15 Naresh Rodriguez MD [address] [place] [address] Consulting Physician NEUROLOGICAL SURGERY 07/06/20 Yue [place]s MD [address] [place] [address] Consulting Physician ENDOCRINOLOGY 02/20/21 documented as of this encounter
--- OUTSIDE RECORDS SUMMARY | 2024-07-09 09:33 | XMS_ITS | Encounter Summary ---
Author Organization [facility] Address [address] [place] [address] Care Team Providers Care Diaper Folder Name Role Phone Florentino Sarabia MD Unavailable [phone] Isaías Nichols MD Primary Care Provider [phone] Naresh Rodriguez MD Unavailable [phone] Yue Edmonds MD Unavailable [phone] Chastity Palomares MD Primary Care Provider [phone] Encounter Details Date Type Department Care Team (Late st Contact Info) Description 03/11/2016 Abstract [facility] AT [address] [address] Tawnya Perry MA Social History Tobacco Use Types Packs/Day Years Used Date Smoking Tobacco: Former Cigarettes Q uit: 1971 Smokeless Tobacco: Never Alcohol Use Standard Drinks/Week Comments Yes 0 (1 standard drink = 0.6 oz pur e alcohol) 7-12 glasses white wine weekly Comments Unknown Sex and Gender Information Value Date Recorded Sex Assigned at Female 06/22/2024 10:14 AM 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 Legal Sex Female 1:41 AM CDT Gender Identity Not on file Sexual Orientation Not on file 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 [place] [address] documented as of this encounter Procedures Procedure Name Priority Date/Time Associated Diagnosis Comments ESR (OUTSIDE LAB) Routine 11/19/2015 RHEUMATOID FACTOR QUAL Routine 11/19/2015 C-REACTIVE PROTEIN Routine 11/19/2015 CBC (OUTSIDE LAB) Routine 11/16/2015 COMPREHENSIVE METABOLIC PANEL Routine 11/16/2015 LIPID PANEL Routine 11/16/2015 THYROID STIM HORMONE TSH Routine 11/16/2015 documented in this encounter Results * RHEUMATOID FACTOR QUAL (11/19/2015) RHEUMATOID FACTOR <15.0 11/19/2015 [facility]AT[facility] Final Result * C-REACTIVE PROTEIN (11/19/2015) CRP 2.68 11/19/2015 [facility]AT[facility] Final Result * ESR (OUTSIDE LAB) (11/19/2015) SED RATE 10 0 - 30 mm/hr 11/19/2015 us Doc [facility] Abstract LAB-OUTSIDE/ABSTRACTED Final Result * CBC (OUTSIDE LAB) (11/16/2015) WBC 4.6 HGB 13.6 HCT 39.2 PLT 332 11/16/2015 us Doc [facility] Abstract LAB-OUTSIDE/ABSTRACTED Final Result * COMPREHENSIVE METABOLIC PANEL (11/16/2015) SODIUM S/P/B 135 POTASSIUM S/P/B 4.4 CO2 25 CHLORIDE S/P/B 101 GLUCOSE 98 CALCIUM S/P/B 9.1 BUN 12 CREATININE S/P/B 0.71 EGFR NON-AFR. AMER. >60 ALKALINE PHOSPHATASE S/P/B 63 ALT 14 AST 15 BILIRUBIN TOTAL S/P/B 0.8 ALBUMIN S/P/B 4.2 3.5 - 5.0 TOTAL PROTEIN S/P/B 6.5 11/16/2015 us Doc [facility] LAB[facility]AT[facility] Final Result * THYROID STIM HORMONE, TSH (11/16/2015) TSH 1.96 11/16/2015 us Doc [facility] LAB[facility]AT[facility] Final Result * LIPID PANEL (11/16/2015) Pathologist [facility] CHOLESTEROL 190 HDL 56 TRIGLYCERIDES 98 LDL (CALCULATED) 114.4 11/16/2015 us Doc [facility] LABORAT[facility] Final Result documented in this encounter Visit Diagnoses Not on filedocumented in this encounter Care Teams Diaper Folder Relationship Specialty Start Date End Date Isaías Nichols MD [address] [address] PCP - General INTERNAL MEDICINE 10/24/15 06/11/21 [place] [address] [place] [address] PCP - General FAMILY PRACTICE 06/12/21 Florentino Sarabia MD [address] [address] [employer] Worker CARDIOVASCULAR DISEASE 10/24/15 Naresh Rodriguez MD [address] [address] Consulting Physician NEUROLOGICAL SURGERY 07/06/20 Yue [place]s MD [address] [address] Consulting Physician ENDOCRINOLOGY 02/20/21 documented as of this encounter
--- OUTSIDE RECORDS SUMMARY | 2024-07-09 09:33 | XMS_ITS | Clinical Summary ---
Author Organization [facility] Address [address] [place] [address] Care Team Providers Care Associate Professor Of Mathematics Name Role Phone Miguel A Lucero MD Unavailable Antony Lundy MD Unavailable [phone] Chastity Palomares MD Primary Care Provider [phone] Jenniffer Darling OD Unavailable [phone] Allergies Active Allergy Reactions Criticality Noted Date [...] 10/03/2015 Dry eyes 10/03/2015 Age-related cataract 10/03/2015 Encounters Date Type Department Care Team Description 06/23/2024 Telephone [facility] Ophthalmology [address] [facility] [address] [place] [address] Miguel A Lucero MD 04/19/2024 10:30 AM CLERK MANAGER Procedure visit [facility] Otolaryngology [address] [place] [address] Yamileth Jiang Au.D. Sensorineural hearing loss (SNHL), bilateral (Primary Dx) 04/14/2024 10:00 AM CLERK MANAGER Office Visit [facility] Ophthalmology [address] [facility] [address] [place] [id number] Mo Santiago III, MD Diplopia (Primary Dx) from Last 3 Months Surgical History Surgery Date Site/Laterality Comments NE DELIVERY ONLY 05/25/1973 - 05/24/19741970, 1971, 1973 NE CHOLECYSTECTOMY 05/25/1984 - 05/24/1985 NE APPENDECTOMY 05/25/1959 - 05/24/1960 Appendectomy - (Added by TW Conv) NE TONSILLECTOMY PRIMARY/SECONDARY <AGE 12 05/25/1950 - 05/24/1951 Tonsillectomy - (Added by TW Conv) IMPLANT 05/25/2015 - 05/24/2016 Dental Implant - (Added by TW Conv) CATARACT EXTRACTION 05/25/2016 - 05/24/2017 Bilateral EYE SURGERY 05/25/1992 - 05/24/1993 Bilateral Upper eyelids COLONOSCOPY 05/25/2021 - 05/24/2022 LUMBAR FUSION 05/25/2016 - 05/24/2017 TOTAL KNEE ARTHROPLASTY 05/25/2018 - 05/24/2019 Right Medical History Medical History Date Comments Puerperal psychosis (HCC) Elbert brown, , 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 (Added by TW Conv) Cataract Hypertension GERD (gastroesophageal reflux disease) PONV (postoperative nausea and vomiting) from morphine, she reports possibly had IV antiemetics but was unsure Hyperthyroidism Family History Medical History Relation Name Comments Thyroid disease Daughter Heart disease Father Family history of cardiac disorder - (Added by TW Conv) Lung cancer Father Family history of lung cancer - (Added by TW Conv) Stroke Mother FHx: stroke - P t's Mother at the age of 43 due to severe/sudden onset stroke. BH (Added by TW Conv) Thyroid disease Mother's Sister Glaucoma Other 1 Family history of glaucoma - Relation: Aunt (Added by TW Conv) Glaucoma Other 2 Family history of glaucoma - Relation: Uncle (Added by TW Conv) Diabetes Paternal Grandfather Family history of diabetes mellitus - (Added by TW Conv) Heart disease Paternal Grandfather Family history of cardiac disorder - (Added by TW Conv) Anesthesia problems Neg Hx Macular degeneration Neg Hx Relation Name Status Comments Daughter Alive Father Mother Mother's Sister Other 1 Other 2 Paternal Grandfather Social History Tobacco Use Types Packs/Day Years [...] on file Legal Sex Female 8:30 AM CLERK MANAGER Gender Identity Not on file Sexual Orientation Not on file Obstetrics History Last Filed Vital Signs Vital Sign Reading [...] 01/12/2024 1:04 PM CDT Plan of Treatment Health Maintenance Due Date Last Done Comments Depression Screening 1944 Hepatitis B Screening 1962 Zoster Vaccine (1 of 2) 1994 Well Visit 65+ 2009 Covid-19 Vaccine (2023-2 5 season) 2024 02/16/2021, 07/19/2020, 07/09/2020, Additional history exists Influenza Vaccine (#1) 2024 , 02/26/2021, 02/01/2020, Additional history exists Osteoporosis Screening-Bone Density Scan 11/14/2024 11/14/2022 Fall Risk Assessment 01/20/2025 01/21/2024 DTaP/Tdap/Td Vaccine (3 - Td or Tdap) 01/31/2030 02/01/2020, 12/02/2011 Pneumococcal vaccine 65+ Completed 020, 04/22/2018, 11/23/2016, Additional history exists Medical Devices Implanted Type Area Marketing Automation Specialist Device Identifier Shelf Expiration Date Model / Serial / Lot Metal N/A: Mouth Insurance MEDICARE [facility] FEDERAL MEDICARE [facility] FED[employer]AL MEDICARE [facility] FED[employer]AL Advance Directives For more information, please contact: [phone] Documents on File Type Date Recorded Patient 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
--- OUTSIDE RECORDS SUMMARY | 2024-07-09 09:33 | XMS_ITS | Clinical Summary ---
Author Organization [facility] Address [address] [place] [address] Care Team Providers Care Program Developer Name Role Phone Florentino Sarabia MD Unavailable [phone] Naresh Rodriguez MD Unavailable [phone] Yue Cabrera MD Unavailable [phone] Chastity Palomares MD Primary Care Provider [phone] Allergies Active Allergy Reactions Criticality Noted Date Comments Codeine Nausea and Vomiting Low 07/03/2017 Gabapentin Headache Low 03/03/2016 Latex Rash Low 03/10/2016 Morphine Vomiting Low 03/03/2016 Morphine And Codeine Vomiting Low 03/03/2016 Medications methIMAzole (TAPAZOLE) 5 MG tablet 2 Active famotidine (PEPCID) 10 MG tablet Take 1 tablet (10 mg total) by mouth 2 (two) times daily. Active losartan (COZAAR) 100 MG tabletIndications :Essential hypertension Take 1 tablet (100 mg total) by mouth daily. 90 tablet 3 4 Active estradiol (ESTRACE) 0.1 MG/GM vaginal creamIndications: Atrophic vaginitis Place 2 g vaginally once a week. 42.5 g 2 4 Active Calcium Carb-Cholecalcife rol (CALCIUM 1000 + D) 1000-20 MG-MCG Tab Take by mouth Activ e celecoxib (CELEBREX) 100 MG capsule 4 Active Multiple Vitamin (MULTIVITAMIN ADULT OR) Active amLODIPine (NORVASC) 5 MG tabletIndications :Essential hypertension Take 1 tablet (5 mg total) by mouth daily. 30 tablet 5 Active Active Problems Problem Noted Date Diagnosed Date Urge incontinence of urine 11/10/2023 Acid reflux disease 04/08/2023 Arthritis 04/08/2023 Overview (04/08/2023): upper thoracic, Lumbar 4-5 Lumbar back pain 04/08/2023 Palpitations 04/08/2023 Eyelid retraction or lag 11/19/2022 At low risk for fall 11/04/2022 Muscle spasms of both lower extremities 11/05/19 Adhesive capsulitis of right shoulder 10/27/2022 Artificial knee joint present 10/27/2022 Osteoporosis 10/27/2022 Pain in left knee 10/27/2022 Spondylosis of cervical spine 10/27/2022 Thyroid eye disease 01/29/2022 Graves disease 01/22/2022 History of colon polyps 07/01/2021 Overview (07/01/2021): Added automatically from request for surgery [id number] Nocturnal leg cramps 02/04/2021 Sensorineural hearing loss (SNHL) of both ears 0 07/31/2020 Chronic neck pain 07/06/2020 Primary osteoarthritis of both feet 05/20/2019 Chronic right shoulder pain 12/26/2018 Assessment & Plan (12/26/2018 9:42 AM CDT): Patient with symptoms suggestive of musculoskeletal shoulder pain. No strong indications of impingement syndrome or joint abnormality. Will refer to physical therapy for evaluation and treatment per her request. Status post total right knee replacement 019 Essential hypertension 09/08/2017 Overview (04/26/2018): Transitioned From: Hypertension Assessment & Plan (12/26/2018 9:35 AM CDT): Well controlled. 1. Medication: continue current medication regimen unchanged, encouraged home monitoring, call for persistent elevations at or above 130/85. 2. Recheck in 6 months, sooner should new symptoms or problems arise. Assessment & Plan (05/11/2018 9:06 AM DIRECTOR OF ACQUISITIONS): Well-controlled at present, on her current dosing of losartan. Will obtain lab work in 2 weeks when she is due for her preoperative exam, plan to continue current dosing unless otherwise indicated. Overweight (BMI 25.0-29.9) 07/10/2016 Assessment & Plan (12/26/2018 9:45 AM CDT): Stable, encouraged regular exercise. Vitamin D deficiency 07/10/2016 Assessment & Plan (05/11/2018 9:06 AM DIRECTOR OF ACQUISITIONS): Using [id number] replacement, without side effects or intolerances. Osteopenia 02/28/2016 Assessment & Plan (12/26/2018 9:41 AM CDT): Patient with history of osteopenia, due for repeat DEXA scan. Requesting order. Gastroesophageal reflux dise ase with esophagitis without hemorrhage 10/03/2015 Dyspepsia 02/13/2015 Assessment & Plan (12/26/2018 9:36 AM CDT): Stable, with dietary control only at this time. Continue to monitor. Assessment & Plan (05/11/2018 9:06 AM DIRECTOR OF ACQUISITIONS): Stable on no medications, intermittent [id number] medications when symptomatic. Dyslipidemia 03/11/2013 Assessment & Plan (05/11/2018 9:08 AM DIRECTOR OF ACQUISITIONS): Diet therapy only. Last measured in October 2016. Consider rechecking this summer. Acquired hypothyroidism 07/11/2012 Assessment & Plan (12/26/2018 9:44 AM CDT): Stable on present dose of medication, without signs or symptoms of over or under replacement. TSH within target range. Repeat in 6 months. Assessment & Plan (05/11/2018 9:08 AM DIRECTOR OF ACQUISITIONS): Stable on current medication, check TSH in 2 weeks and adjust accordingly. Resolved Problems Problem Noted Date Diagnosed Date Resolved Date Foot pain, bilateral 05/04/2019 022 Impacted cerumen of left ear 12/26/2018 01/03/2020 Assessment & Plan (12/26/2018 9:42 AM CDT): Ear flushed without incident. Normal-appearing tympanic membrane. Handout provided for home therapy. Hyponatremia 11/20/2017 05/11/2018 Medication management 02/18/20162021 Overview (04/26/2018): Transitioned From: Therapeutic drug monitoring Assessment & Plan (12/26/2018 9:45 AM CDT): Repeat routine lab work in 6 months. Osteoarthritis of knee 12/02/201111/02 Assessment & Plan (05/11/2018 9:07 AM DIRECTOR OF ACQUISITIONS): Upcoming total knee replacement surgery, mid May. We will do preop visit in 2 weeks, with lab work and EKG. Encounters Date Type Department Care Team Description 07/06/2024 Telephone [facility] [address] [phone] Chastity Palomares MD Blood Pressure 06/22/2024 10:00 AM DIRECTOR OF ACQUISITIONS Office Visit [facility] [address] [phone] Chastity Palomares MD Medication Management 06/22/2024 Travel 04/28/2024 12:12 PM DIRECTOR OF ACQUISITIONS - 04/28/2024 11:59 PM DIRECTOR OF ACQUISITIONS Hospital Encounter [facility] [address] [place], [place] [id number] Chastity Palomares MD Discharge Disposition: Home or Self Care (Routine Discharge) 04/28/2024 Travel 04/25/2024 9:40 AM DIRECTOR OF ACQUISITIONS Office Visit [facility] [address] [phone] Yazmin Olivares NP Cough (Acute cough x 2 months and a mcclure needs something) 04/25/2024 Travel from Last 3 Months Immunizations Name Administration Dates Next Due Arexvy Respiratory Syncytial Virus (RSV, adjuvanted) 0.5 mL, PF 03/02/2023 COVID-19 Vaccine (Generic) 06/17/2020 Flulaval Quad (Prefilled Syringe) 02/01/2020 Fluzone High Dose - >Age 65 (Prefilled Syringe) 01/30/2023 Influenza (Generic) 03/07/2019, 7,03/06/2016,2015,02/23/2016,02/12/2015,04/06/2014,1 06/06/2013,03/08/2013,03/08/2013, 012,05/05/2012 Influenza Adult (Generic) 02/05/2022,09/2020,02/01/2020,2018,02/15/2018,03/05/2017,03/05/2016,0 02/12/2015,04/06/2014,03/08/2013, 012 PFIZER COVID-19 (CRUZ CAP), MRNA, LNP-S, PF, 30 MCG/0.3 ML COREY-SUCROSE, IM 08/27/2021 PFIZER COVID-19 (ORIGINAL FORMULATION, PURPLE CAP) mRNA, LNP-S, PF, 30 MCG/0.3 ML DOSE 02/16/2021,07/19/2020,07/09/2020,2020 Pneumococcal (Pneumovax 23) 01/03/2020, 3,05/26/2011 Pneumococcal (Prevnar 13) 04/22/2018,11/23/2016 Tdap (Boostrix) 02/01/2020 Tdap (Generic) 02/01/2020,12/02/2011 Family History Medical History Relation Comments Alcohol Abuse Brother Alcohol/Drug Brother Drug Abuse Brother Defects Daughter Early Daughter Graves Daughter Cancer Father Early Hearing Loss Father Family history of lung cancer Father Miscarriages / Stillbirths Maternal Aunt 1 Stroke Maternal Aunt 2 Arthritis Maternal Grandmother Depression Maternal Grandmother Early Hearing Loss Maternal Grandmother Vision loss Maternal Grandmother Stroke Maternal Uncle Depression Mother Early Mother Heavy smoker Mother Hypertension Mother Ischemic Stroke Mother Multiple strokes , at age 43 Stroke Mother Diabetes Paternal Grandfather Family history of Diabetes Mellitus Paternal Grandfather Family history of acute NM Paternal Grandfather Heart Disease Paternal Grandfather Arthritis Paternal Grandmother Vision loss Paternal Grandmother Breast Cancer Neg Hx Relation Status Comments Brother Alive Daughter Alive Father Maternal Aunt 1 Maternal Aunt 2 Maternal Grandmother Maternal Uncle Mother (Age 43) Paternal Grandfather Paternal Grandmother Social History Tobacco Use Types Packs/Day Years Used Date Smoking Tobacco: Former Cigarettes 2 10 0 05/25/1960 - 05/25/1970 Passive Smoke Exposure: Past Smokeless Tobacco: Never Tobacco Cessation:Counseling Given: No Comments:quit Alcohol Use Standard Drinks/Week Comments Not [...] Date Recorded Patient Health Questionnaire-2 Score 0 06/22/2024 Comments No Sex and Gender Information Value Date Recorded Sex Assigned at Female 06/22/2024 10:14 AM DIRECTOR OF ACQUISITIONS Legal Sex Female 1:41 AM CDT Gender Identity Not on file Sexual Orientation Not on file 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 Not on file Not on fi le Last Filed Vital Signs Vital Sign Reading Time Taken Comments Blood Pressure 156/84 06/22/2024 10:28 AM DIRECTOR OF ACQUISITIONS Pulse 74 06/22/2024 10:13 AM DIRECTOR OF ACQUISITIONS Temperature 36.7 C (98 F) 06/22/2024 10:13 AM DIRECTOR OF ACQUISITIONS Respiratory Rate 16 06/22/2024 10:13 AM DIRECTOR OF ACQUISITIONS Oxygen Saturation 98% 06/22/2024 10:13 AM DIRECTOR OF ACQUISITIONS Inhaled Oxygen Concentration - - Weight 73.9 kg (163 lb) 06/22/2024 10:13 AM DIRECTOR OF ACQUISITIONS Height 157.5 cm (5' 2 ) 06/22/2024 10:13 AM DIRECTOR OF ACQUISITIONS Body Mass Index 29.81 06/22/2024 10:13 AM DIRECTOR OF ACQUISITIONS Plan of Treatment Upcoming Encounters Date Type Department Care Team (Late st Contact Info) Description 08/22/2024 8:40 AM CDT Laboratory Only [facility] [id number] [place] [phone] 08/26/2024 10:20 AM CDT Office Visit [facility] [address] [place] [address] [place] [address] [facility] [place] [address] Health Maintenance Due Date Last Done Comments Zoster Vaccines (1 of 2) 1994 Annual Medicare Wellness Visit 10/31/2021 10/30/2020 COVID-19 Vaccine ( season) 2024 02/11/2023, 02/05/2022, 08/27/2021, Additional history exists Influenza Adult (#1) 2024 01/30/2023, 02/05/2022, 02/26/2021, Additional history exists DTaP, Tdap and Td Vaccines (4 - Td or Tdap) 01/31/2030 02/01/2020, 02/01/2020, 12/02/2011 Pneumococcal Vaccine: 65+ Years Completed 01/03/2020, 04/22/2018, 11/23/2016, Additional history exists Colorectal Cancer Screening Colonoscopy (10 Years) Discontinued 07/17/2021, 07/19/2018, 07/21/2015 Dexa Scan (General) Completed 11/14/2022, 11/12/2020, 11/08/2018, Additional history exists RSV Immunization or 60+ Years Completed 03/02/2023 PHQ-2 (Physician [place]) Completed 06/22/2024 Meningococcal B Vaccine Aged Out No l onger eligible based on patient's age to complete this topic Meningococcal Vaccine Aged Out No santos cony eligible based on patient's age to complete this topic RSV Immunizations Under 20 Months Aged Out No longer eligible based on patient's age to complete this topic Procedures Procedure Name Priority Date/Time Associated Diagnosis Comments MG SCREENING W ERICK WHTINEY DIGI Routine 04/28/2024 2:53 PM DIRECTOR OF ACQUISITIONS Visit for screening mammogram BONE DENSITY/DEXA Routine 11/14/2022 10: 23 AM CDT Age-related osteoporosis without current pathological fracture correction (current) use of bisphosphonates COLONOSCOPY GENERIC (SCAN ORDER) Routine 07/19/2018 from Last 3 Months or Most Recently Relevant to Health Maintenance Results * MG SCREENING W ERICK WHITNEY DIGI (04/28/2024 2:53 PM DIRECTOR OF ACQUISITIONS) Anatomical Region Laterality Modality Breast Bilateral Mammography 04/28/2024 4:54 PM DIRECTOR OF ACQUISITIONS Impressions 04/28/2024 4:58 PM DIRECTOR OF ACQUISITIONS ===== IMPRESSION: ===== 1. Stable mammographic appearance with no new findings to suggest malignancy in either breast. Assessment: ACR BI-RADS 2 - BENIGN FINDING(S) Recommendation: 1:Routine Screening Bilateral Comments: Ordered By: CHASTITY PALOMARES Interpreted By: Markie Sullivan, 04/28/2024 4:54 PM Narrative 04/28/2024 4:58 PM DIRECTOR OF ACQUISITIONS [facility] [address] [place] [address] EXAMINATION: Digital bilateral screening mammogram with 3-D tomosynthesis EXAM DATE/TIME: 04/28/2024 12:22 PM REASON FOR EXAM: Screening Mammogram COMPARISON: 02/02/2020. 03/25/2022 Technique: Digital screening mammography of both breasts was performed in addition to 3-D Tomosynthesis technique. This study was read with the assistance of a computer-aided detection system. Tissue density: There are scattered areas of fibroglandular density. Findings: There is no new focal asymmetry, dominant mass lesion, area of skin thickening, or cluster of suspicious appearing calcifications in either breast to suggest malignancy. us Chastity Palomares MD MAMMO Final Result * BONE DENSITY/DEXA (11/14/2022 10:23 AM CDT) Anatomical Region Laterality Modality Bone Bone Density 11/14/2022 4:04 PM CDT Narrative 11/14/2022 4:07 PM CDT IMAGING STUDIES: BONE DENSITY/DEXA DATE: 11/14/2022 9:59 AM CLINICAL HISTORY: Postmenopausal. No stated calcium replacement therapy. 77-year-old female with menopause at age 58. FINDINGS: LUMBAR SPINE L1-L3 BMD: 1.067 g/sq cm T-SCORE: 0.4 WHO CLASSIFICATION: Normal young adult range FRACTURE RISK: Very low Distal right forearm: BMD: 0.519 T-SCORE: -2.8 WHO CLASSIFICATION: Mild osteoporosis FRACTURE RISK: Moderate COMPARISON STUDY: 11/12/2020 LUMBAR SPINE L1-L3 BMD: 1.066 T-SCORE: 0.1 WHO CLASSIFICATION: Normal young adult range FRACTURE RISK: Very low Distal right forearm BMD: 0.513 T-SCORE: -3.0 WHO CLASSIFICATION: Moderate osteoporosis FRACTURE RISK: Moderately high Recommendation. Continuation of calcium replacement therapy with repeat imaging in one year. I would rely on the forearm findings. Lumbar findings are elevated due to degenerative change Ordered By: YUE CABRERA Interpreted By: Markie Sullivan, 11/14/2022 4:04 PM Procedure Note Ariel Sullivan MD - 11/14/2022 IMAGING STUDIES: BONE DENSITY/DEXA DATE: 11/14/2022 9:59 AM CLINICAL HISTORY: Postmenopausal. No stated calcium replacement therapy.77-year-old female with menopause at age 58. FINDINGS: LUMBAR SPINE L1-L3 BMD: 1.067 g/sq cm T-SCORE: 0.4 WHO CLASSIFICATION: Normal young adult range FRACTURE RISK: Very low Distal right forearm: BMD: 0.519 T-SCORE: -2.8 WHO CLASSIFICATION: Mild osteoporosis FRACTURE RISK: Moderate COMPARISON STUDY: 11/12/2020 LUMBAR SPINE L1-L3 BMD: 1.066 T-SCORE: 0.1 WHO CLASSIFICATION: Normal young adult range FRACTURE RISK: Very low Distal right forearm BMD: 0.513 T-SCORE: -3.0 WHO CLASSIFICATION: Moderate osteoporosis FRACTURE RISK: Moderately high Recommendation. Continuation of calcium replacement therapy with repeatimaging in one year. I would rely on the forearm findings. 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 Advance Directives and Living Will 09/03/2018 12:00 AM 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 Advance Directives and Living Will 07/09/2018 12:00 AM 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 Advance Directives and Living Will 05/10/2018 12:00 AM 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 Advance Directives and Living Will 11/26/2017 12:00 AM 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 Advance Directives and Living Will 11/26/2017 12:00 AM 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 Advance Directives and Living Will 11/20/2017 12:00 AM 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 Advance Directives and Living Will 11/20/2017 12:00 AM 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 Advance Directives and Living Will 11/18/2017 12:00 AM 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 Advance Directives and Living Will 11/18/2017 12:00 AM 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 Advance Directives and Living Will 09/09/2017 12:00 AM 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 Advance Directives and Living Will 09/09/2017 12:00 AM 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 Advance Directives and Living Will 07/22/2017 12:00 AM 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 Advance Directives and Living Will 07/22/2017 12:00 AM 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 Advance Directives and Living Will 06/25/2017 12:00 AM 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 Advance Directives and Living Will 06/25/2017 12:00 AM 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 Advance Directives and Living Will 04/29/2017 12:00 AM 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 Advance Directives and Living Will 04/29/2017 12:00 AM 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 Advance Directives and Living Will 11/12/2016 12:00 AM 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 Advance Directives and Living Will 11/12/2016 12:00 AM 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 Advance Directives and Living Will 08/31/2016 12:00 AM 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 Advance Directives and Living Will 08/31/2016 12:00 AM 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 Advance Directives and Living Will 08/21/2016 12:00 AM 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 Advance Directives and Living Will 08/21/2016 12:00 AM 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 Advance Directives and Living Will 07/25/2016 12:00 AM 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 Advance Directives and Living Will 07/25/2016 12:00 AM 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 Advance Directives and Living Will 07/08/2016 12:00 AM 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 Advance Directives and Living Will 07/08/2016 12:00 AM 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 Advance Directives and Living Will 06/25/2016 12:00 AM 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 Advance Directives and Living Will 06/25/2016 12:00 AM 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 Advance Directives and Living Will 04/16/2016 12:00 AM 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 Advance Directives and Living Will 04/16/2016 12:00 AM 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 Advance Directives and Living Will 04/09/2016 12:00 AM 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 Advance Directives and Living Will 04/09/2016 12:00 AM 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 Advance Directives and Living Will 03/20/2016 12:00 AM 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 Advance Directives and Living Will 03/20/2016 12:00 AM 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 Advance Directives and Living Will 02/14/2016 12:00 AM 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 Advance Directives and Living Will 02/14/2016 12:00 AM 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 Advance Directives and Living Will 01/02/2016 12:00 AM 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 Advance Directives and Living Will 01/02/2016 12:00 AM 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 Advance Directives and Living Will 01/01/2016 12:00 AM 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 Advance Directives and Living Will 01/01/2016 12:00 AM 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 Advance Directives and Living Will 12/11/2015 12:00 AM 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 Advance Directives and Living Will 12/11/2015 12:00 AM 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 Advance Directives and Living Will 12/04/2015 12:00 AM 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 Advance Directives and Living Will 12/04/2015 12:00 AM 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 Advance Directives and Living Will 11/19/2015 12:00 AM 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 Advance Directives and Living Will 11/19/2015 12:00 AM 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 Advance Directives and Living Will 11/16/2015 12:00 AM 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 Advance Directives and Living Will 11/16/2015 12:00 AM 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 Advance Directives and Living Will 07/19/2015 12:00 AM 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 Advance Directives and Living Will 07/19/2015 12:00 AM 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 [place], [place] [id number] PCP - General FAMILY PRACTICE 06/12/21 Florentino Sarabia MD [facility]. [address] [address] [facility] CARDIOVASCULAR DISEASE 10/24/15 Naresh Rodriguez MD [facility]. [address] [address] Consulting Physician NEUROLOGICAL SURGERY 07/06/20 Yue Cabrera MD [facility]. [address] [address] Consulting Physician ENDOCRINOLOGY 02/20/21
--- OUTSIDE RECORDS SUMMARY | 2024-07-09 09:33 | XMS_ITS | Encounter Summary ---
Author Organization [facility] Address [address] [place] [address] Care Team Providers Care Director Of Clinical Services Name Role Phone Florentino Sarabia MD Unavailable [phone] Isaías Nichols MD Primary Care Provider [phone] Naresh Rodriguez MD Unavailable [phone] Yue Edmonds MD Unavailable [phone] Chastity Palomares MD Primary Care Provider [phone] Encounter Details Date Type Department Care Team (Late st Contact Info) Description 11/26/2020 MyChart Message Enc [facility] Family & Internal Medicine [facility] [address] [place] [address] Isaías Nichols MD [address] [address] RE: Test Results Social History [...] Sex Assigned at Female 06/22/2024 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 No / Unsure 11/22/2020 7:58 AM CDT documented as of this encounter Progress Notes * Evangelina Drake MA - 11/27/2020 10:24 AM CDT Please advise documented in this encounter Plan of Treatment Upcoming Encounters Date Type Department Care Team (Late st Contact Info) Description 08/22/2024 8:40 AM CDT Laboratory Only [facility] Family & Internal Medicine [facility] [address] [place] [address] 08/26/2024 10:20 AM CDT Office Visit [facility] Family & Internal Medicine [facility] [address] [place] [address] [place] [address] [place] [id number] documented as of this encounter Visit Diagnoses Not on filedocumented in this encounter Additional Health Concerns Assessment Noted Time PHQ-9 Depression Total Score: 0 10/31/19 21 8:34 AM CDT documented as of this encounter Care Teams Director Of Clinical Services Relationship Specialty Start Date End Date Isaías Nichols MD [facility]. [address] [address] PCP - General INTERNAL MEDICINE 10/24/15 06/11/21 [place] [address] [place] [address] PCP - General FAMILY PRACTICE 06/12/21 Florentino Sarabia MD [address] [address] [employer] Support Worker CARDIOVASCULAR DISEASE 10/24/15 Naresh Rodriguez MD [address] [address] Consulting Physician NEUROLOGICAL SURGERY 07/06/20 Yue Edmonds MD [address] [address] Consulting Physician ENDOCRINOLOGY 02/20/21 documented as of this encounter
--- OUTSIDE RECORDS SUMMARY | 2024-07-09 09:33 | XMS_ITS | Encounter Summary ---
Author Organization [facility] Address [address] [place] [address] Care Team Providers Care District Fire Chief Name Role Phone Florentino Sarabia MD Unavailable [phone] Isaías Nichols MD Primary Care Provider [phone] Naresh Rodriguez MD Unavailable [phone] Yue Edmonds MD Unavailable [phone] Chastity Palomares MD Primary Care Provider [phone] Encounter Details Date Type Department Care Team (Late st Contact Info) Description 07/12/2020 Spacious App Message [facility] [address] [place] [address] Isaías Nichols MD [address] [address] Medication Questions Social History Tobacco Use Types [...] Sex Assigned at Female 06/22/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 [address] [place] [id number] documented as of this encounter Visit Diagnoses Not on filedocumented in this encounter Care Teams District Fire Chief Relationship Specialty Start Date End Date Isaías Nichols [facility] [address] [address] PCP - General INTERNAL MEDICINE 10/24/15 06/11/21 [place] [address] [place] [id number] PCP - General FAMILY PRACTICE 06/12/21 Florentino Sarabia MD [facility]. [address] [address] [employer] Associate CARDIOVASCULAR DISEASE 10/24/15 Naresh Rodriguez MD [facility]. [address] [address] Consulting Physician NEUROLOGICAL SURGERY 07/06/20 Yue Edmonds MD [facility]. [address] [address] Consulting Physician ENDOCRINOLOGY 02/20/21 documented as of this encounter
[2024-07-09 09:41] VITALS: BP 144/67; PULSE 75; RESP 18; TEMP 36.1; O2SAT 100
[2024-07-09 10:06] LABS: EDUAAPPEAR Clear; EDUABILI Negative (Negative); EDUABLOOD 1+ (Negative); EDUACOLOR1 Yellow; EDUAGLUCOSE Negative (Negative); EDUAKETONE Negative (Negative); EDUALEUKO 3+ (Negative); EDUANITRATE Negative (Negative); EDUAPROTEIN Negative (Negative); EDUASPGRAVITY 1.015; EDUAUROBILI 0.2
== END 2024-07-09 10:27 | disposition home or self-care (01) ==
PROVIDERS: Emergency Provider Nurse Practitioner Family; PCP Family Medicine
DX: N30.01 Acute cystitis with hematuria (principal); B96.20 Unspecified Escherichia coli [E. coli] as the cause of diseases classified elsewhere; I10 Essential (primary) hypertension; E05.00 Thyrotoxicosis with diffuse goiter without thyrotoxic crisis or storm; K21.9 Gastro-esophageal reflux disease without esophagitis; M81.0 Age-related osteoporosis without current pathological fracture; Z96.651 Presence of right artificial knee joint
CPT/HCPCS: 81003; 87086; 87186; 99213; G0463